=== PATIENT | female | born 1985 ===

== ENCOUNTER 2017-04-22 08:57 | Day surgery (SDC) | payer MEDICAID ==
[2017-04-16 17:14] VITALS: BMI 33.5
[2017-04-22] MEDS ORDERED: Propofol 10 mg/ml Inj (20 ML) ONE (11:01)
[2017-04-22] MEDS ORDERED: Lidocaine 1% Inj (20ml) ONE (11:01)
[2017-04-22 11:35] VITALS: TEMP 96.9
[2017-04-22 11:42] VITALS: O2SAT 100
[2017-04-22 13:30] VITALS: BP 107/59; PULSE 76; RESP 16
== END 2017-04-22 13:45 | disposition home or self-care (01) ==
LOC: C.ENDO 08:57
PROVIDERS: ATTEND Internal Medicine Gastroenterology
DX: R10.12 Left upper quadrant pain (principal); R10.32 Left lower quadrant pain; K25.9 Gastric ulcer, unspecified as acute or chronic, without hemorrhage or perforation; F32.9 Major depressive disorder, single episode, unspecified; G40.909 Epilepsy, unspecified, not intractable, without status epilepticus; Z79.899 Other long term (current) drug therapy; F17.210 Nicotine dependence, cigarettes, uncomplicated
CPT/HCPCS: 43239; 84703; 88305; J2704

== ENCOUNTER 2017-07-16 08:52 | Day surgery (SDC) | payer MEDICAID ==
[2017-07-16] MEDS ORDERED: Lactated Ringer's 500 ML IV ONE ×2 (09:34)
[2017-07-16] MEDS ORDERED: Propofol 10 mg/ml Inj (20 ML) ONE ×2 (09:38→09:57)
--- NOTE | 2017-07-16 09:49 | CP.SDSHP ---
Same Day Surgery H & P - History Proposed Procedure: egd Pre-Op Diagnosis: abdominal pain - Previous Medical/Surgical History Neuro: Seizure Disorder - Allergies Allergies: Allergies No Known Allergies Allergy (Verified 04/16/17 17:14) - Physical Exam General Appearance: nad Vital Signs: Vital Signs 07/16/17 09:07 Temperature 98 F Pulse Rate 87 Respiratory 20 Rate Blood Pressure 106/53 L O2 Sat by Pulse 100 Oximetry Mental Status: Alert & Oriented x3 Neuro: WNL Heart: WNL Lungs: WNL GI: WNL - {Optional Preform as Required} Abdomen: WNL - Impression Pt. Evaluated Today:Candidate for Anesthesia & Procedure: Yes - Date & Time Date: 07/16/17 Short Stay Discharge - Short Stay Discharge Admitting Diagnosis/Reason for Visit: HISTORY OF GASTRIC ULCER Disposition: HOME/ ROUTINE
[2017-07-16 12:36] VITALS: BMI 27.3
[2017-07-16 12:37] VITALS: BP 111/67; PULSE 78; RESP 14; TEMP 97.5; O2SAT 100
== END 2017-07-16 11:15 | disposition home or self-care (01) ==
LOC: C.ENDO 08:52
PROVIDERS: ATTEND Internal Medicine Gastroenterology
DX: R10.13 Epigastric pain (principal); Z87.19 Personal history of other diseases of the digestive system; K31.89 Other diseases of stomach and duodenum; K29.30 Chronic superficial gastritis without bleeding